=== PATIENT | female | born 1940 | race Caucasian/White ===

== ENCOUNTER → 2019-04-11 | Outpatient (CLI) | payer BC ==
[2019-04-11 11:03] LABS: BASOPHILS ABSOLUTE AUTO 0.07 K/mm3 (0.00-0.23); BASOPHILS PERCENT AUTO 1 % (0-2); EOSINOPHILS ABSOLUTE AUTO 0.08 K/mm3 (0.00-0.68); EOSINOPHILS PERCENT AUTO 1 % (0-6); Hemoglobin 13.9 g/dL (11.5-16.0); IMMATURE GRAN ABSOLUTE AUTO 0.05 K/mm3 (0.00-0.10); IMMATURE GRAN PERCENT AUTO 1 % (0-1); LYMPHOCYTES ABSOLUTE AUTO 1.69 K/mm3 (0.84-5.20); LYMPHOCYTES PERCENT AUTO 16 % (21-46); MONOCYTES PERCENT AUTO 10 % (4-13); Mean Corpuscular HGB Conc 36.6 g/dL (31.5-36.5); Mean Corpuscular Volume 82 fL (80-100); Mean Platelet Volume 8.5 fL (9.1-12.4); NEUTROPHILS ABSOLUTE AUTO 7.89 K/mm3 (1.96-9.15); NEUTROPHILS PERCENT AUTO 73 % (41-73); Platelet Count 369 K/mm3 (150-400); RDW Coefficient Variation 12.7 % (11.7-14.2); RDW Standard Deviation 37.9 fL (35.1-46.3); Red Blood Cell Count 4.63 M/mm3 (3.80-5.20); White Blood Cell Count 10.88 K/mm3 (4.00-11.30)
[2019-04-11 11:22] LABS: Alanine Aminotransfer (ALT/SGP 25 U/L (12-78); Albumin, Blood 3.7 g/dL (3.4-5.0); Albumin/Globulin Ratio 0.9 (0.8-1.8); Alk Phos 79 U/L (40-126); Anion Gap 6 mmol/L (6-16); Aspartate Aminotrans (AST/SGOT 24 U/L (12-37); Bilirubin, Total 0.9 mg/dL (0.1-1.0); Blood Urea Nitrogen 10 mg/dL (8-24); Bun/Creatinine Ratio 11.5 (12.0-20.0); CO2, Blood 32 mmol/L (21-32); Calcium, Blood 8.7 mg/dL (8.5-10.1); Chloride, Blood 82 mmol/L (98-108); Creatinine, Blood 0.87 mg/dL (0.40-1.00); Glomerular Filtration Rate >60 (60-); Glucose, Blood 114 mg/dL (70-99); Potassium, Blood 3.7 mmol/L (3.5-5.5); Sodium, Blood 120 mmol/L (136-145); Thyroid Stimulating Hormone 2.922 uIU/mL (0.360-4.800); Total Protein, Blood 7.7 g/dL (6.4-8.2)
== END ==
LOC: LAB SHORT 10:59 → LAB EV 10:59
PROVIDERS: Emergency Medicine
DX: R05 Cough (principal); R53.83 Other fatigue
CPT/HCPCS: 80053; 84443; 85025

== ENCOUNTER → 2019-04-30 | Outpatient (CLI) | payer BC | END | disposition home or self-care (01) | LOC: LAB EV 11:09 → LAB SHORT 11:09 | DX: J02.9 Acute pharyngitis, unspecified (principal) | CPT/HCPCS: 87081 ==

== ENCOUNTER → 2023-08-01 | Outpatient (CLI) | payer BC ==
[2023-08-01 15:46] LABS: BASOPHILS ABSOLUTE AUTO 0.04 K/mm3 (0.00-0.23); BASOPHILS PERCENT AUTO 0 % (0-2); EOSINOPHILS ABSOLUTE AUTO 0.17 K/mm3 (0.00-0.68); EOSINOPHILS PERCENT AUTO 1 % (0-6); Hematocrit 40.4 % (33.0-51.0); Hemoglobin 14.1 g/dL (11.5-16.0); IMMATURE GRAN ABSOLUTE AUTO 0.05 K/mm3 (0.00-0.10); IMMATURE GRAN PERCENT AUTO 0 % (0-1); LYMPHOCYTES ABSOLUTE AUTO 1.95 K/mm3 (0.84-5.20); LYMPHOCYTES PERCENT AUTO 15 % (21-46); MONOCYTES PERCENT AUTO 8 % (4-13); Mean Corpuscular HGB 29.9 pg (26.0-34.0); Mean Corpuscular HGB Conc 34.9 g/dL (31.5-36.5); Mean Corpuscular Volume 86 fL (80-100); Mean Platelet Volume 8.2 fL (9.1-12.4); NEUTROPHILS ABSOLUTE AUTO 10.05 K/mm3 (1.96-9.15); NEUTROPHILS PERCENT AUTO 76 % (41-73); Platelet Count 358 K/mm3 (150-400); RDW Coefficient Variation 13.5 % (11.7-14.2); RDW Standard Deviation 42.1 fL (35.1-46.3); Red Blood Cell Count 4.71 M/mm3 (3.80-5.20); White Blood Cell Count 13.26 K/mm3 (4.00-11.30)
[2023-08-01 16:08] LABS: Alanine Aminotransfer (ALT/SGP 14 U/L (12-78); Albumin, Blood 4.1 g/dL (3.4-5.0); Albumin/Globulin Ratio 1.1 (0.8-1.8); Alk Phos 62 U/L (40-126); Anion Gap 9 mmol/L (6-16); Aspartate Aminotrans (AST/SGOT 12 U/L (12-37); Bilirubin, Total 0.5 mg/dL (0.1-1.0); Blood Urea Nitrogen 18 mg/dL (8-24); Bun/Creatinine Ratio 19.8 (12.0-20.0); CHOL/HDL RATIO 2.9; CO2, Blood 31 mmol/L (21-32); Calcium, Blood 10.7 mg/dL (8.5-10.1); Chloride, Blood 95 mmol/L (98-108); Cholesterol 200 mg/dL (50-200); Creatinine, Blood 0.91 mg/dL (0.40-1.00); Globulin, Blood 3.6 g/dL (2.2-4.0); Glomerular Filtration Rate 63 (60-); Glucose, Blood 106 mg/dL (70-99); HDL Cholesterol 70 mg/dL (>39); LDL/HDL RATIO 1.6; Low Density Lipoprotein Chol 111 mg/dL (<110); Potassium, Blood 3.5 mmol/L (3.5-5.5); Sodium, Blood 135 mmol/L (136-145); Thyroid Stimulating Hormone 12.963 uIU/mL (0.360-4.800); Total Protein, Blood 7.7 g/dL (6.4-8.2); Triglycerides 94 mg/dL (30-160); Very Low Density Lipoprot Chol 18 mg/dL (6-32)
== END | disposition home or self-care (01) ==
LOC: LAB SHORT 15:42 → LAB 15:42
PROVIDERS: Physician Assistant
DX: I10 Essential (primary) hypertension (principal); R53.83 Other fatigue
CPT/HCPCS: 80053; 80061; 84443; 85025; 87086

== ENCOUNTER → 2023-08-10 | Outpatient (CLI) | payer BC ==
[2023-08-10 09:51] LABS: BASOPHILS ABSOLUTE AUTO 0.06 K/mm3 (0.00-0.23); BASOPHILS PERCENT AUTO 1 % (0-2); EOSINOPHILS ABSOLUTE AUTO 0.18 K/mm3 (0.00-0.68); EOSINOPHILS PERCENT AUTO 2 % (0-6); Hematocrit 39.7 % (33.0-51.0); Hemoglobin 13.8 g/dL (11.5-16.0); IMMATURE GRAN ABSOLUTE AUTO 0.04 K/mm3 (0.00-0.10); IMMATURE GRAN PERCENT AUTO 0 % (0-1); LYMPHOCYTES ABSOLUTE AUTO 1.58 K/mm3 (0.84-5.20); LYMPHOCYTES PERCENT AUTO 13 % (21-46); MONOCYTES ABSOLUTE AUTO 0.79 K/mm3 (0.16-1.47); MONOCYTES PERCENT AUTO 7 % (4-13); Mean Corpuscular HGB 29.7 pg (26.0-34.0); Mean Corpuscular HGB Conc 34.8 g/dL (31.5-36.5); Mean Corpuscular Volume 85 fL (80-100); Mean Platelet Volume 8.2 fL (9.1-12.4); NEUTROPHILS PERCENT AUTO 78 % (41-73); Platelet Count 368 K/mm3 (150-400); RDW Standard Deviation 40.4 fL (35.1-46.3); Red Blood Cell Count 4.65 M/mm3 (3.80-5.20); White Blood Cell Count 11.75 K/mm3 (4.00-11.30)
== END ==
LOC: LAB SHORT 09:48 → LAB 09:48
PROVIDERS: Family Medicine
DX: R10.11 Right upper quadrant pain (principal)
CPT/HCPCS: 85025

== ENCOUNTER 2024-04-26 06:45 | Day surgery (SDC) | payer BC ==
[2024-04-26] VITALS (13 sets, daily range): BP systolic 131–183; BP diastolic 58–73
[~2024-04-26] VITALS: Ht 162.6 cm; Wt 61.8 kg
[~2024-04-26 06:45] MED LIST: ALEN70 PO; Acetaminophen 500 MG Tab PO SCH; BRIMONIDINE TART5 M3 BOTHEYES; CIDAFLEX TABLE1 EAC1 PO; CeFAZolin Sodium 2,000 MG in NS 100 ML IV SCH; Chlorhexidine Mouth Care 15 ML UDC MT SCH; EUTHYROX88 MCG PO; EZET10 PO; LATANOPROST2.5 M3 BOTHEYES; Lactated Ringer's 1,000 ML IV SCH; MAGNESIUM PO; METF500 PO; OxyCODONE HCL 10 MG TABCR PO SCH; PRED5 PO; RAMI5 PO; RED YEAST RICE55 MG PO; Ropivacaine 0.5% HCl/Pf 123.125 MG,EPINEPHrine HCL 0.25 MG,Ketorolac Tromethamine 15 MG... INFIL SCH; Tranexamic Acid 100 ML IV SCH; [UNRECOGNIZED DRUG - SUPPLY]; calcium PO
[2024-04-26] MEDS ORDERED: PRED1 PO (07:07)
[2024-04-26] MEDS ORDERED: GLUCHON PO (07:12)
[2024-04-26] MEDS ORDERED: ACET500 PO (07:15)
[2024-04-26] MEDS ORDERED: propofoL 20 ML IV ONE (07:32)
--- NOTE | 2024-04-26 07:58 | NUR ---
CLOTHING AND CANE SENT WITH DAUGHTER, CLIVE, FOR SAFE KEEPING DURING SURGERY.
[2024-04-26] MEDS ORDERED: Dexamethasone Sod Phos 10 MG/ML 1ML VIAL ONE (08:48)
[2024-04-26] MEDS ORDERED: FentaNYL Citrate 50 MCG/ML 2 ML Injection IV PRN ×3 (09:15→09:20)
[2024-04-26] MEDS ORDERED: HYDROmorphone HCl/Pf 1MG SYR IV PRN ×2 (09:20→09:40)
[2024-04-26] MEDS ORDERED: propofoL 40 ML IV ONE (09:20)
[2024-04-26] MEDS ORDERED: Ondansetron HCl 2 MG / ML 2ML Vial IV PRN ×2 (09:20→09:50)
[2024-04-26] MEDS ORDERED: Ondansetron HCl 2 MG / ML 2ML Vial ONE (09:25)
[2024-04-26] MEDS ORDERED: Alendronate Sodium 70 MG Tablet PO SCH (09:40)
[2024-04-26] MEDS ORDERED: Promethazine HCl 25 MG Tab PO PRN (09:40)
[2024-04-26] MEDS ORDERED: Bisacodyl 10 MG Supp PR PRN (09:40)
[2024-04-26] MEDS ORDERED: Metoclopramide HCl 5MG / ML 2ML Vial IV PRN (09:45)
[2024-04-26] MEDS ORDERED: Magnesium Hydroxide Conc 10 ML UDC PO PRN (09:45)
[2024-04-26] MEDS ORDERED: DiphenhydrAMINE HCL 25 MG Cap PO PRN (09:45)
[2024-04-26] MEDS ORDERED: OxyCODONE HCL 5 MG TAB PO PRN ×2 (09:50)
[2024-04-26] MEDS ORDERED: Lactated Ringer's 1,000 ML IV SCH (09:50)
--- NOTE | 2024-04-26 11:01 | NUR ---
PATIENT ARRIVED TO THE FLOOR FROM PACU TODAY. POD 0 LEFT TOTAL KNEE PATIENT IS A&OX4. SHE DID HAVE A SPINAL DURING THE PROCEDURE AND IS UNABLE TO WIGGLE HER TOES AT THIS TIME, BUT PEDAL PULSES ARE STRONG AND WARM TO TOUCH. HER LEFT KNEE HAS CAROL ANN WRAP AND AQUACEL DRESSING THAT IS C/D/I. SHE IS TOLERATING SMALL AMOUNTS OF PO INTAKE AT THIS TIME. SHE IS LAYING IN BED WITH CALL LIGHT IN REACH AND FAMILY AT BEDSIDE.
[2024-04-26] MEDS ORDERED: Insulin Regular 100 UNIT/ML 10ML Vial SC SCH (11:30)
[2024-04-26] MEDS ORDERED: Ketorolac Tromethamine 15mg Vial IV SCH (12:00)
[2024-04-26] MEDS ORDERED: ASPI81CH PO (12:32)
[2024-04-26] MEDS ORDERED: Lisinopril 10 MG Tab PO ONE (14:25)
[2024-04-26] MEDS ORDERED: Acetaminophen 500 MG Tab PO SCH (16:00)
[2024-04-26] MEDS ORDERED: CeFAZolin Sodium 2,000 MG in NS 100 ML IV SCH (16:00)
--- NOTE | 2024-04-26 17:37 | NUR ---
SHIFT SUMMARY: POD 0 LEFT TOTAL KNEE PATIENT IS A&OX4. PATIENTS PAIN IS MANAGED WITH PO OXY, PO TYLENOL, AND IV TORADOL. HER LEFT KNEE HAS CAROL ANN WRAP AND AQUACEL DRESSING THAT IS C/D/I. SHE DENIES NUMBNESS OR TINGLING THROUGHOUT ALL EXTREMITIES. PATIENT DID WORK WITH PHYSICAL THERAPY TODAY AND IS A SBA WITH FWW AND GAIT BELT. SHE IS TOLERATING PO INTAKE AND IS VOIDING. PATIENT IS CURRENTLY IN THE RECLINER CHAIR WITH LEGS ELEVATED AND CALL LIGHT IN REACH. FAMILY AT BEDSIDE.
[2024-04-26] MEDS ORDERED: Lisinopril 10 MG Tab PO SCH (21:00)
[2024-04-26] MEDS ORDERED: PredniSONE 1 MG Tab PO SCH (21:00)
[2024-04-26] MEDS ORDERED: Latanoprost 0.005% Opth Soln 2.5 ML BOTHEYES SCH (21:00)
[2024-04-26] MEDS ORDERED: Ezetimibe 10 MG Tab PO SCH (21:00)
[2024-04-26] MEDS ORDERED: Docusate Sodium 100 MG Cap PO SCH (21:00)
[2024-04-27 04:10] VITALS: BP 141/69
--- NOTE | 2024-04-27 04:28 | NUR ---
SUMMARY- PT HAS AMBULATED AND VOIDED THIS SHIFT. PT DISCOMFORT HAS BEEN MINIMAL. PT DRESSING INTACT. CALL LIGHT IN REACH
[2024-04-27 04:50] LABS: BASOPHILS ABSOLUTE AUTO 0.01 K/mm3 (0.00-0.23); BASOPHILS PERCENT AUTO 0 % (0-2); EOSINOPHILS PERCENT AUTO 0 % (0-6); Hematocrit 32.1 % (33.0-51.0); Hemoglobin 10.9 g/dL (11.5-16.0); IMMATURE GRAN ABSOLUTE AUTO 0.03 K/mm3 (0.00-0.10); IMMATURE GRAN PERCENT AUTO 0 % (0-1); LYMPHOCYTES ABSOLUTE AUTO 0.99 K/mm3 (0.84-5.20); LYMPHOCYTES PERCENT AUTO 12 % (21-46); MONOCYTES ABSOLUTE AUTO 0.62 K/mm3 (0.16-1.47); MONOCYTES PERCENT AUTO 7 % (4-13); Mean Corpuscular HGB 31.1 pg (26.0-34.0); Mean Corpuscular Volume 92 fL (80-100); Mean Platelet Volume 8.3 fL (9.1-12.4); NEUTROPHILS ABSOLUTE AUTO 6.71 K/mm3 (1.96-9.15); NEUTROPHILS PERCENT AUTO 80 % (41-73); Platelet Count 200 K/mm3 (150-400); RDW Coefficient Variation 14.6 % (11.7-14.2); RDW Standard Deviation 49.2 fL (35.1-46.3); White Blood Cell Count 8.36 K/mm3 (4.00-11.30)
[2024-04-27 05:07] LABS: Bun/Creatinine Ratio 19.3 (12.0-20.0); Calcium, Blood 8.4 mg/dL (8.5-10.1); Creatinine, Blood 0.67 mg/dL (0.40-1.00); Potassium, Blood 4.2 mmol/L (3.5-5.5)
[2024-04-27] MEDS ORDERED: Levothyroxine Sodium 0.088 MG Tab PO SCH (06:00)
[2024-04-27 07:16] VITALS: BP 148/67
[2024-04-27] MEDS ORDERED: Lisinopril 10 MG Tab PO SCH (09:00)
[2024-04-27] MEDS ORDERED: Brimonidine Tartrate 0.2% Opth 5 ml BOTHEYES SCH (09:00)
[2024-04-27] MEDS ORDERED: Aspirin 81 MG Chew PO SCH (09:00)
[2024-04-27] MEDS ORDERED: Magnesium Oxide 400 MG Tab PO SCH (09:00)
[2024-04-27] MEDS ORDERED: MetFORMIN HCl 500 mg PO SCH (09:00)
[2024-04-27] MEDS ORDERED: PredniSONE 5 MG Tab PO SCH (09:00)
--- NOTE | 2024-04-27 09:26 | NUR ---
DISCHARGE NOTE: PATIENT AND PATIENTS DAUGHTER WERE BOTH EDUCATED ON DISCHARGE INSTRUCTIONS. BOTH VERBALIZED UNDERSTANDING OF INSTRUCTIONS AND HAD NO FURTHER QUESTIONS AT THIS TIME. IV WAS TAKEN OUT AND WNL. PAIN IS MANAGED WITH PO PAIN MEDS. HER LEFT KNEE HAS CAROL ANN WRAP AND AQUACEL THAT ARE C/D/I. SHE WAS ALSO GIVEN X2 EXTRA AQUACEL DRESSINGS FOR AT HOME DRESSING CHANGE. POLAR PACK IS PACKED UP WELL HER PERSONAL BELONGINGS. SHE IS TOLERATING PO INTAKE AND IS VOIDING. SHE IS A SBA WITH FWW AND GAIT BELT. PATIENT IS BEING WHEELCHAIRED OUT TO HER DAUGHTERS CAR WITH HER PERSONAL BELONGINGS TO BE TAKEN HOME.
== END 2024-04-27 09:28 | disposition home or self-care (01) ==
LOC: ORSCMMR 06:45 → ORD 08:15 → SURS 10:47 → ORSCMMR 04-27 09:28
PROVIDERS: Orthopaedic Surgery
PROC: 0SRD0JA Replacement of Left Knee Joint with Synthetic Substitute, Uncemented, Open Approach (ICD-10-PCS; principal; 2024-04-26 08:15)
DX: M17.12 Unilateral primary osteoarthritis, left knee (principal); E11.9 Type 2 diabetes mellitus without complications; I10 Essential (primary) hypertension; E03.9 Hypothyroidism, unspecified; Z87.891 Personal history of nicotine dependence; Z79.84 Long term (current) use of oral hypoglycemic drugs; Z79.899 Other long term (current) drug therapy
CPT/HCPCS: 36415; 73560-LT; 80048; 82947; 85025; 97110; 97116; 97162; A9270; C1776; J0171; J0690; J0735; J1100; J1815; J1885; J2405; J2704; J2795; J7120; J7512

== ENCOUNTER → 2024-05-07 | Outpatient (CLI) | payer BC ==
[~2024-05-07] MED LIST changes: +ACET500 PO; +ASPI81CH PO; -Acetaminophen 500 MG Tab PO SCH; -CeFAZolin Sodium 2,000 MG in NS 100 ML IV SCH; -Chlorhexidine Mouth Care 15 ML UDC MT SCH; +GLUCHON PO; -Lactated Ringer's 1,000 ML IV SCH; -OxyCODONE HCL 10 MG TABCR PO SCH; +PRED1 PO; -Ropivacaine 0.5% HCl/Pf 123.125 MG,EPINEPHrine HCL 0.25 MG,Ketorolac Tromethamine 15 MG... INFIL SCH; -Tranexamic Acid 100 ML IV SCH
== END ==
LOC: LAB 15:35 → LAB SHORT 15:35
DX: S81.001A Unspecified open wound, right knee, initial encounter (principal)
CPT/HCPCS: 87070; 87075; 87205